=== PATIENT | female | born 1975 | race Caucasian/White ===

== ENCOUNTER 2017-10-24 05:24 | Day surgery (SDC) | payer OTHER ==
[~2017-10-24] VITALS: Ht 172.7 cm; Wt 113.4 kg
--- NOTE | ~2017-10-24 | O ---
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 PROCEDURE: Left distraction arthrodesis with femoral head allograft of the subtalar joint. SURGEON: Liam Rothman MD STEEL PLACER: Jenny Pizano. ANESTHESIA: General. ESTIMATED BLOOD LOSS: Minimal. DRAINS: No drains. TOURNIQUET TIME: One hour. DESCRIPTION OF PROCEDURE: The patient was brought to the operating room, where she was placed under general anesthesia. Once under adequate general anesthesia, her left lower extremity was prepped and draped in sterile manner. The extremity was elevated, exsanguinated, tourniquet placed to 300 mmHg. A lateral incision over the sinus tarsi was then made approximately 4 cm in length. This was dissected down through the soft tissue to the extensor digitorum and fat pad overlying the sinus tarsi. These were then incised and elevated, exposing the subtalar joint. The talus was subluxed medially with regards to the calcaneus. Any soft tissue interposing between the two was then removed and subsequent to this any cartilage was removed from the plantar surface of the talus, as well as from the superior surface of the calcaneus at the posterior facet. A sagittal saw was utilized to shape the femoral head allograft into a wedge. This was then tamped into place in the subtalar joint, posterior facet, to allow some distraction across the joint. Once complete, utilizing fluoroscopy for guidance, two 7.3 mm cannulated screws were then placed from the neck of the talus through to the body of the calcaneus through [facility] [address] [place] [address] OPERATIVE REPORT Name: XIOMARA GONCALVES Room #: DEP [facility]..#: [id number] Admission: 10/24/17 Attend Phys: Liam Rothman MD Discharge: 10/25/17 Date of : 71 Report #: [id number] the subtalar joint. Excellent fixation and alignment was achieved in this manner as verified under fluoroscopy. Once complete, the wounds were irrigated copiously and closed with #1 Vicryl in the deep fascia, 2-0 Vicryl in subcutaneous tissues and [place] were used for the skin. Prior to wound closure, more allograft was placed into the subtalar joint with use of a tamp as well. Once complete, the wounds were irrigated copiously and closed with 2-0 Vicryl in subcutaneous tissues and [place] for the skin. The wounds were dressed with Xeroform, 4 x 4s, and sterile soft compressive dressing was placed. Tourniquet was let down at approximately 1 hour. Toes were pink and warm with good capillary refill. There were no complications from the procedure. The patient tolerated the procedure well and went to the recovery room without incident. <ELECTRONICALLY SIGNED> By: Liam Rothman MD 10/31/17 0740 1354 1410 Liam Rothman MD /nt
[~2017-10-24 05:24] MED LIST: BENADRYL25 MG; BENICAR20 MG; CARVEDILOL3.125 MG PO; CLONAZEPAM PO; CYMBALTA60 MG PO; HYDROCODON-ACE1 EACH PO; LISINOPRIL10 MG PO; LORTAB 5-500 T1 EAC1 PO; PROZAC 20 MG20 M1 PO; PROZAC40 MG PO
[2017-10-24 10:40] VITALS: BP 116/64
[2017-10-24 20:51] VITALS: BP 131/92
[2017-10-25 00:30] VITALS: BP 123/71
[2017-10-25 05:43] VITALS: BP 140/74
[2017-10-25 06:22] LABS: POTASSIUM 3.8 mmol/L (3.5-5.1)
[2017-10-25 06:26] LABS: HEMATOCRIT 43.2 % (37.0-47.0); HEMOGLOBIN 14.5 gm/dL (12.0-15.0)
[2017-10-25 09:51] VITALS: BP 115/75
[2017-10-25 13:48] VITALS: BP 115/75
== END 2017-10-25 14:08 | disposition home or self-care (01) ==
LOC: OR 05:24 → TBA 05:24 → 4N 17:34 → OR 10-25 14:08
PROVIDERS: Orthopaedic Surgery Foot and Ankle Surgery
DX: M19.072 Primary osteoarthritis, left ankle and foot (principal); S92.0 Fracture of calcaneus; I11.0 Hypertensive heart disease with heart failure; I50.9 Heart failure, unspecified; F17.210 Nicotine dependence, cigarettes, uncomplicated; Z87.442 Personal history of urinary calculi; Z98.890 Other specified postprocedural states; Z79.899 Other long term (current) drug therapy; Z88.8 Allergy status to other drugs, medicaments and biological substances; X58.XXXD Exposure to other specified factors, subsequent encounter
CPT/HCPCS: 10790; 50010; 50101; 52120; 53400; 62110; 62900; 70005

== ENCOUNTER → 2017-12-12 | Day surgery (SDC) | payer OTHER ==
[~2017-12-12] VITALS: Ht 175.3 cm; Wt 119.3 kg
[~2017-12-12] MED LIST changes: +CBD PO; +CENTRUM SILVER1 EAC4 PO; +PERCOCET PO
--- NOTE | ~2017-12-12 | PATH ---
[facility] [address] [place] [address] PATHOLOGY RPT PROCEDURE Name: SUSAN CATALAN Room #: REG [facility].#: [id number] Admission: 12/12/17 Date of : 71 Discharge: Report #: [id number] Path Case #: [id number] [facility] Accession Number: [id number] . 01 Material submitted: . BONE FRAGMENT CALCANEOUS LEFT MEDIAL FOOT . 01 Clinical history: . Bone fragment left medial foot . 02 Diagnosis: Bone fragment, left medial foot calcaneus, excision: - Reactive and remodeled osseous tissue. - Marrow space showing fibrosis and fatty replacement. (IUV:mgr; 12/14/17) QRQ/12/14/2017 . 02 Electronically signed: . Cara Talley MD, Pathologist NPI- [id number] . 01 Gross description: . The specimen is received in formalin, labeled "Susan Catalan and bone fragment calcaneus", is a winter-yellow bone measuring 1.5 x 1.0 x 0.5 cm, serially sectioned to show a yellow trabeculated bone. The specimen is entirely submitted in A1 after decalcification. . ([facility]; 12/12/2017) SHS/SHS . 02 CPT . 527681 Performed at: [address], [place] [id number] MD Nicholas Tinajero MD Phone: [phone] Performed at: [address] [id number] MD Cara Talley MD Phone: [phone]
--- NOTE | ~2017-12-12 | EKG ---
[address] [address] ELECTROCARDIOGRAM REPORT Name: XIOMARA GONCALVES Room #: [facility]#: [id number] Admission: 12/12/17 Attend Phys: Liam Rothman MD Discharge: Date of : 71 Report #: [id number] THIS REPORT FOR: //name// [facility] Test Date: 2017-12-12 Test Time: 11:23:59 Pat Name: XIOMARA GONCALVES Department: Room: Gender: F Validation Manager: JAYASHREE : 1975 Requested By: Liam Rothman Order Number: [id number] MD: Rk Estrella Measurements Intervals [place] Rate: 82 P: 34 MT: 179 QRS: -24 QRSD: 99 T: 7 QT: 394 QTc: 461 Interpretive Statements Sinus rhythm No previous ECG available for comparison Electronically Signed On 12-12-2017 15:18:22 CDT by Rk Estrella [email or web address] <ELECTRONICALLY SIGNED> By: Rk Estrella MD 12/12/17 1518 1123 1123 MD LISA Singh
--- NOTE | ~2017-12-12 | O ---
[facility] [place] [address] OPERATIVE REPORT Name: XIOMARA GONCALVES Room #: REG [facility]#: [id number] Admission: 12/12/17 Attend Phys: Liam Rothman MD Discharge: Date of : 71 Report #: [id number] THIS REPORT FOR: //name// CC: FAM unknown Liam Rothman DATE OF SERVICE: 12/12/2017 PREOPERATIVE DIAGNOSIS: Left foot loose bony fragment, medial hindfoot. POSTOPERATIVE DIAGNOSIS: Left foot loose bony fragment, medial hindfoot. PROCEDURE: Left foot medial hindfoot bony mass excision. SURGEON: Liam Rothman MD DISTRICT GAUGER: Jenny Pizano. ANESTHESIA: General. ESTIMATED BLOOD LOSS: Minimal. DRAINS: None. TOURNIQUET TIME: 30 minutes. DESCRIPTION OF PROCEDURE: The patient brought to the operating room where she was placed under general anesthesia. Once under adequate general anesthesia, her left lower extremity was prepped and draped in a sterile manner. The extremity was elevated and tourniquet placed to 300 mmHg. A medial incision overlying the bony fracture fragment and essentially the posterior aspect of the tarsal tunnel was then made, approximately 4 cm in length. This was dissected down through the soft tissue to the bony fragment. This was freed then from any surrounding scar and other soft tissue and subsequently excised with a rongeur. At the skin, the patient's previous sinus tract was excised as well. The wound was irrigated copiously and closed with 2-0 Vicryl in subcutaneous tissues and [place] were used for the skin. The wounds were dressed with Xeroform, 4 x 4s, and sterile soft compressive dressing was placed. Tourniquet was let down at approximately 30 minutes. Toes were pink and warm with good capillary refill. There were no complications from the procedure. The patient tolerated the procedure well and went to the recovery room without incident. By: 1312 1340 Liam Rothman MD /nt
[2017-12-12 11:16] VITALS: BP 133/84
[2017-12-12 13:37] VITALS: BP 133/84
== END | disposition home or self-care (01) ==
LOC: OR 05:28
DX: M24.072 Loose body in left ankle (principal); I11.0 Hypertensive heart disease with heart failure; I50.9 Heart failure, unspecified; F17.210 Nicotine dependence, cigarettes, uncomplicated; Z90.49 Acquired absence of other specified parts of digestive tract; Z88.8 Allergy status to other drugs, medicaments and biological substances; Z98.890 Other specified postprocedural states; Z87.442 Personal history of urinary calculi; Z79.891 Long term (current) use of opiate analgesic
CPT/HCPCS: 50010; 50101; 50386; 51412; 57091; 62110; 62900; 64039; 64043; 70005

== ENCOUNTER 2019-02-13 05:22 | Observation (INO) | payer OTHER ==
[~2019-02-13] VITALS: Ht 175.3 cm; Wt 127.0 kg
[~2019-02-13 05:22] MED LIST changes: +AMITRIPTYLINE H25 M2 PO; -CBD PO; +CBD TOP; +HYDROCHLOROTHIA25 M2 PO; +PERCOCET 10-321 EACH PO; +PERCOCET 7.5-31 EACH PO; +VITAMIN B-12500 MCG PO; +VOLTAREN GEL 1100 G2 TOP
[2019-02-13 09:59] LABS: CALCIUM 9.7 mg/dL (8.5-10.1); CREATININE 0.7 mg/dL (0.6-1.0); POTASSIUM 3.4 mmol/L (3.5-5.1)
[2019-02-13 10:30] VITALS: BP 111/79
[2019-02-13 16:54] VITALS: BP 126/85
--- NOTE | 2019-02-13 18:33 | NUR ---
PT ADMITTED TO ROOM 418 CLEAR LIQUID ADVANCE TOLERATED DIET. WANTS HOME MEDS AND NICOTINE PATCH CALLED DR VALLADARES AND DR CERNA TOOTH CUTTER CLUTCH STATED OKAY FOR ORDERS.
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
[2019-02-13 21:56] VITALS: BP 125/93
[2019-02-14 00:29] VITALS: BP 113/80
[2019-02-14 05:56] LABS: HEMATOCRIT 42.5 % (37.0-47.0); HEMOGLOBIN 14.3 gm/dL (12.0-15.0)
[2019-02-14 06:04] LABS: POTASSIUM 3.9 mmol/L (3.5-5.1)
--- NOTE | 2019-02-14 07:38 | NUR ---
ASSUMED CARE AT 1900, ASSESSMENT COMPLETED. PT'S PAIN WELL-CONTROLLED OVERNIGHT WITH OXY; REPORTS FEELING NERVE BLOCK WEARING OFF THIS AM, GAVE DOSE OF OXY. DENIES NAUSEA OR SOB. TRANSFERRING SELF TO [facility]. PLAN FOR D/C TODAY, NO OTHER CONCERNS, SHIFT REPORT GIVEN AT 0700.
[2019-02-14 09:19] LABS: CALCIUM 8.7 mg/dL (8.5-10.1); CREATININE 0.8 mg/dL (0.6-1.0)
[2019-02-14] MEDS ORDERED: PERCOCET 7.5-31 EACH PO (10:45)
[2019-02-14] MEDS ORDERED: ASA5UEC PO (10:45)
--- NOTE | 2019-02-14 10:48 | O ---
[facility] [place] [address] OPERATIVE REPORT Name: XIOMARA GONCALVES [id number] Admission: 02/13/19 ������������������ Attend Phys: Liam Rothman MD Discharge: ������������������ Date of : 71 Report #: [id number] THIS REPORT FOR: //name// CC: TK Rothman Physician staff DATE OF SERVICE: 02/13/2019 PREOPERATIVE DIAGNOSES: 1. Failed arthrodesis, left subtalar joint. 2. Left ankle and hindfoot Charcot arthropathy. POSTOPERATIVE DIAGNOSES: 1. Failed arthrodesis, left subtalar joint. 2. Left ankle and hindfoot Charcot arthropathy. PROCEDURE: Left subtalar joint hardware removal and left tibiotalocalcaneal arthrodesis. SURGEON: Liam Rothman MD ANESTHESIA: General. ESTIMATED BLOOD LOSS: Minimal. DRAINS: No drains. TOURNIQUET TIME: 99 minutes. DESCRIPTION OF PROCEDURE: The patient was brought to the operating room where she was placed under general anesthesia. Once under adequate general anesthesia, her left lower extremity was prepped and draped in sterile manner. The extremity was elevated, exsanguinated and tourniquet was placed to 300 mmHg. Utilizing fluoroscopy for guidance, an anterior incision on the patient's previous scar over the dorsum of the talus was made. This was dissected down through soft tissue to the talar neck. Guidewire for the 7.3 mm cannulated screws was then utilized to extract the 7.3 mm screws. Two of the screws were then removed. Once complete, this wound was irrigated copiously and closed with 2-0 Vicryl and [place] for the skin. A separate lateral incision extending along the distal fibula to the subtalar joint was then made. This was dissected down to the fibula, which was then subsequently completely exposed. The Hohmann retractors were placed and a sagittal saw was used to transect the fibula few centimeters proximal to the joint. This was then released sharply with a 15 blade and extracted with a rongeur. This then did allow exposure of the subtalar and ankle joints, which were then denuded of any cartilage with an [facility] [address] [place] [address] OPERATIVE REPORT Name: XIOMARA GONCALVES Letitia Room #: 418-P [facility] Regi Mac#: [id number] Admission: 02/13/19 ������������������ Attend Phys: Liam Rothman MD Discharge: ������������������ Date of : 71 Report #: [id number] oscillating saw as well as a rongeur. Flat cuts were made at the talus and distal tibia. The talus; however, was very necrotic with the majority of the talus being resected with a rongeur. Subtalar joint was prepared as well in a similar fashion to good bleeding subchondral bone with a rongeur. Once complete fluoroscopy was used to place the guidewire and then subsequently reamed for the [employer]s tibiotalocalcaneal fusion nail, a size 13 nail was then placed with a distal fixation pin set through a separate incision posteriorly. Two 76 mm screws were placed for posterior and anterior fixation through the calcaneus. Excellent fixation was achieved distally. We then proceeded proximally and 2 screws were placed proximally through the guide for the tibiotalocalcaneal fusion nail. Excellent fixation was achieved in this manner and satisfactory alignment. Once complete, the wounds were irrigated copiously and closed with #1 Vicryl on the deep fascia, 2-0 Vicryl on the subcutaneous tissues, [place] were used for the skin except on the plantar surface where the skin was closed with [place] and 2-0 nylon suture. Wounds were dressed with Xeroform, 4 x 4s, and sterile soft compressive dressing with a short leg cast was placed. Tourniquet was let down at 99 minutes. Toes were pink and warm with good capillary refill. There were no complications from the procedure. The patient tolerated the procedure well and went to the recovery room without incident. ��������������������������������������������� <ELECTRONICALLY SIGNED> ���������������������������������������� By: Liam Rothman MD ��������������������������������������������� 02/14/19 1048 1457 1536 Liam Rothman MD /nt
[2019-02-14 10:53] VITALS: BP 133/92
--- NOTE | 2019-02-14 11:15 | NUR ---
Assumed pt care at 7am.Pt in bed resting and very cheerful.Assessment completed.vss.Meds given with breakfast.Pt has good appetite.Dr Rothman here,dc order noted. Dc summary compile and reviewed with pt.Rx and dc summary copy given. At 1115,pt dc home in her electric wc with family member.
[2019-02-14] MEDS ORDERED: MIRALAX17 GM PO (11:17)
[2019-02-14] MEDS ORDERED: COLACE100 MG PO (11:17)
== END 2019-02-14 11:21 | disposition home or self-care (01) ==
LOC: TBA 05:22 → OR 05:22 → TBA 05:23 → OR 15:23 → 4E 16:50 → OR 16:51 → 4E 16:51
PROVIDERS: ADMIT Orthopaedic Surgery Foot and Ankle Surgery
DX: M14.672 Charcot's joint, left ankle and foot (principal); I10 Essential (primary) hypertension; Z47.2 Encounter for removal of internal fixation device; F17.200 Nicotine dependence, unspecified, uncomplicated; Z79.899 Other long term (current) drug therapy
CPT/HCPCS: 10783; 50010; 50101; 50386; 50635; 50951; 51412; 52120; 53341; 55430; 56524; 56525; 57091; 57180; 57213; 62110; 62900; 70005